=== PATIENT | female | born 1980 | race Caucasian/White ===

== ENCOUNTER 2017-03-10 12:08 | Day surgery (SDC) | payer OTHER ==
[2017-03-10] VITALS (10 sets, daily range): BP systolic 116–140; BP diastolic 70–95; PULSE 70–99; RESP 15–30; Ht 160 cm; Wt 98.3 kg
[~2017-03-10] VITALS: Ht 160 cm; Wt 98.3 kg
[2017-03-10 14:04] LABS: INR 0.94; PARTIAL THROMBOPLASTIN TIME 28.5 Sec (25.0-35.0); PROTIME 12.6 Sec (12.2-14.2)
--- NOTE | 2017-03-10 15:48 | HPN ---
Date/Time of Note Date/Time of Note DATE: 03/10/17 TIME: 15:47 Interval H&P Admission Note Pt. seen H&P reviewed: No system changes TERESA SHARP MD Mar 10, 2017 15:47
[2017-03-10] MEDS ORDERED: MEPERIDINE 25 MG INJ IV PRN (16:00)
[2017-03-10] MEDS ORDERED: DIPHENHYDRAMINE 50 MG INJ IV PRN (16:00)
[2017-03-10] MEDS ORDERED: FENTAnyl 50 MCG/ML VIAL IV PRN ×3 (16:00)
[2017-03-10] MEDS ORDERED: METOCLOPRAMIDE 10 MG INJ IV PRN (16:00)
[2017-03-10] MEDS ORDERED: OXYCODONE/ACETAMINOPHEN (5/325) TAB PO PRN ×2 (16:00)
[2017-03-10] MEDS ORDERED: HYDROmorphONE (0.2 MG/ML) 10ML SYG IV PRN ×3 (16:00)
[2017-03-10] MEDS ORDERED: MIDAZOLAM 1 MG/ML 2 ML INJ IV PRN (16:00)
[2017-03-10] MEDS ORDERED: ONDANSETRON 4 MG INJ IV PRN (16:00)
[2017-03-10] MEDS ORDERED: MEPERIDINE 100 MG INJ ONE (16:09)
[2017-03-10] MEDS ORDERED: LIDOCAINE 2% (SDV) 5 ML INJ ONE (16:09)
[2017-03-10] MEDS ORDERED: PROPOFOL 20 ML ONE (16:09)
[2017-03-10] MEDS ORDERED: NEOSTIGMINE 3 MG/3 ML SYRINGE ONE ×2 (16:09→16:46)
[2017-03-10] MEDS ORDERED: GLYCOPYRROLATE 0.4 MG INJ ONE ×3 (16:09→16:46)
[2017-03-10] MEDS ORDERED: SUCCINYLCHOLINE CHLORIDE 100 MG/5 ML SYG IV ONE (16:09)
[2017-03-10] MEDS ORDERED: ROCURONIUM 50 MG INJ ONE (16:09)
[2017-03-10] MEDS ORDERED: DEXAMETHASONE 4 MG/ML 1 ML INJ ONE (16:12)
[2017-03-10] MEDS ORDERED: HYDROCODONE/APAP (5/325) TAB PO PRN (16:30)
[2017-03-10] MEDS ORDERED: ONDANSETRON 4 MG INJ ONE (16:44)
--- NOTE | 2017-03-10 16:49 | OPR ---
Date/Time of Note Date/Time of Note DATE: 03/10/17 TIME: 16:47 Operative Report Procedure Date: Mar 10, 2017 Preoperative Diagnosis Chronic tonsillitis. Postoperative Diagnosis Same Operation Performed Tonsillectomy Surgeon: TERESA SHARP MD Anesthesia Type: general Estimated Blood Loss: minimal Transfusion Required: no Specimens tonsils Grafts/Implants: none Complications: no Pt Condition Post Procedure: stable Disposition: PACU Indications Chronic and recurrent tonsillitis Operative\Procedure Findings Symmetric Procedure Description Description of procedure: The patient was identified in the holding area. We had a discussion to confirm understanding of all indications risks benefits alternatives and postoperative care associated with the operation. The patient signed informed consent was taken to the operating room. The patient was laid supine on the operating room table and general anesthesia was achieved without difficulty. The face was draped in sterile fashion. A McIvor mouth gag was placed and used to retract the oral cavity open, taking care to avoid damage to the teeth. The oral cavity and pharynx were inspected and palpated to reveal symmetric tonsils. At this point the right palatine tonsil was grabbed superiorly with a curved Julissa clamp. It was retracted medially and monopolar cautery was used to enter the peritonsillar space. Dissection of the tonsil commenced in a superior to inferior fashion until it was completely resected. Suction Bovie cautery was used for spot hemostasis. At this point, the contralateral tonsil was removed in the exact similar fashion. There was significant bleeding or oozing. Copious irrigation and suctioning was performed. Secondary inspection revealed no bleeding or oozing. The patient was awakened, extubated and taken to the PACU in stable condition. Complications: None TERESA SHARP MD Mar 10, 2017 16:48
== END 2017-03-10 18:20 | disposition home or self-care (01) ==
LOC: SDS 12:08
PROVIDERS: ATTEND Otolaryngology
DX: J35.01 Chronic tonsillitis (principal)
CPT/HCPCS: 42826; 85610; 85730; 88304; J1100; J2175; J2405; J2710; Z7512; Z7610; J1170; J7999

== ENCOUNTER 2019-02-16 11:59 | Day surgery (SDC) | payer OTHER ==
[~2019-02-16] VITALS: Ht 162.6 cm; Wt 98.9 kg
[~2019-02-16 11:59] MED LIST: METO-429 PO
[2019-02-16 13:54] VITALS: Ht 162.6 cm; Wt 98.9 kg
--- NOTE | 2019-02-16 14:16 | PREAC ---
Date/Time of Note Date/Time of Note DATE: 02/16/19 TIME: 14:14 Anesthesia Eval and Record Evaluation Time Pre-Procedure Interview DATE: 02/16/19 TIME: 14:14 Age 38 Sex female NPO: 8 hrs Preoperative diagnosis Abdominal pain, rectal bleeding Planned procedure colonoscopy Past Medical History Past Medical History: Includes Cardio: HTN, Dyslipidemia GI: Obesity Surgery & Anesthesia Issues No known issue Meds Anticoagulation: No Beta Dequan within 24 hr: Yes Reported Medications Metoprolol Tartrate* (Lopressor*) 50 Mg Tab, 50 MG PO BID, #60 TAB 02/16/19 Meds reviewed: Yes Allergies Coded Allergies: No Known Allergy (Unverified , 02/16/19) Allergies Reviewed: Yes Labs/Studies Labs Reviewed: Reviewed by anesthesiologist test: Negative Studies: ECG Pre-procedure Exam Last vitals BP:112/67, P:78, Spo2:100%, T:98,8 Airway: Adequate mouth opening, Adequate thyromental dist Mallampati: Mallampati II Teeth: Normal Lung: Normal Heart: Normal ASA Physical Status ASA physical status: 2 Emergency: None Planned Anesthetic General/MAC: MAC Planned Pain Management Parenteral pain med Pre-operative Attestations Prior to commencing anesthesia and surgery, the patient was re-evaluated, there was verification of: *The patient's identity *The results of appropriate recent lab work and preoperative vital signs *The above evaluation not changing prior to induction *Anesthetic plan, risk benefits, alternative and complications discussed with patient/family; questions answered; patient/family understands, accepts and wishes to proceed. OLIVIA MINOR MD Feb 16, 2019 14:16
[2019-02-16 14:17] VITALS: BP 148/85; PULSE 81; RESP 20
[2019-02-16] MEDS ORDERED: PROPOFOL 40 ML ONE (15:56)
[2019-02-16] MEDS ORDERED: LIDOCAINE 2% (SDV) 5 ML INJ ONE (15:56)
--- NOTE | 2019-02-16 16:16 | PAC ---
Date/Time of Note Date/Time of Note DATE: 02/16/19 TIME: 16:15 Post-Anesthesia Notes Post-Anesthesia Note Last documented vital signs Vital Signs Date Temp Pulse Resp B/P (MAP) Pulse Ox O2 O2 Flow FiO2 Time Delivery Rate 02/16/19 97.4 81 20 148/85 99 Room Air 14:17 (106) Activity: WNL Respiratory function: WNL Cardiovascular function: WNL Mental status: Baseline Pain reasonably controlled: Yes Hydration appropriate: Yes Nausea/Vomiting absent: Yes Comments BP:112/67, P:82, Spo2:100%, T:98,8 OLIVIA MINOR MD Feb 16, 2019 16:16
[2019-02-16 16:37] VITALS: BP 122/75; PULSE 86; RESP 20
== END 2019-02-16 16:52 | disposition home or self-care (01) ==
LOC: GIL 11:59
PROVIDERS: ATTEND Internal Medicine Gastroenterology
DX: K64.8 Other hemorrhoids (principal); K92.1 Melena; E66.9 Obesity, unspecified; Z68.37 Body mass index [BMI] 37.0-37.9, adult
CPT/HCPCS: 45378; Z7610